=== PATIENT | male | born 1940 | race Caucasian/White ===

== ENCOUNTER 2024-01-07 11:34 | Inpatient (IN) | payer MEDICARE ==
[~2024-01-07] VITALS: Ht 172.7 cm; Wt 63.5 kg
[2024-01-07 11:35] VITALS: BP_SYST 137; PULSE 118; RESP 20; TEMP 97.8; O2SAT 97
[2024-01-07] MEDS: NS 1000 ML IV.SOLN IV ONE (11:45)
[2024-01-07 12:04] LABS: HEMATOCRIT 30.4 % (36-54); HEMOGLOBIN 9.9 g/dL (14.0-18.0); MEAN CORPUSCULAR HEMOGLOBIN 28 pg (27-31); MEAN CORPUSCULAR HGB CONC 33 % (32-36); MEAN CORPUSCULAR VOLUME 85 fL (79.0-98.0); PLATELET COUNT (AUTO) 153 K/uL (130-430); RED BLOOD CELL COUNT(AUTO) 3.57 MIL/uL (4.2-6.2); RED CELL DISTRIBUTION WIDTH 16.9 % (9.0-15.0); WHITE BLOOD COUNT (AUTO) 24.1 K/uL (4.8-10.8)
[2024-01-07 12:18] LABS: INR 1.9 (0.80-1.20); PROTHROMBIN TIME 19.1 SECS (9.5-12.5)
[2024-01-07 12:24] LABS: ANION GAP 15 (5-15); CALCIUM 8.3 mg/dL (8.4-11.0); CARBON DIOXIDE 23 mmol/L (23-29); CHLORIDE 105 mmol/L (98-107); CREATININE 0.92 mg/dL (0.55-1.30); GLUCOSE 218 mg/dL (74-106); POTASSIUM 3.9 mmol/L (3.5-5.1); SODIUM SERUM 143 mmol/L (136-145); UREA NITROGEN, BLOOD 31 mg/dL (8-21)
[2024-01-07 12:36] LABS: BAND % (MANUAL) 6 % (0-6); EOSINOPHILS % (MANUAL) 0 % (0-7); LYMPHOCYTES % (MANUAL) 5 % (20-46); MONOCYTES % (MANUAL) 6 % (0-11)
[2024-01-07 12:37] LABS: ANISOCYTOSIS 1+; BASOPHILS % (MANUAL) 0 % (0-2); HELMET CELLS FEW; OVALOCYTES FEW; PLATELET ESTIMATE ADEQUATE (ADEQUATE); POLYCHROMASIA 1+; TEAR DROP CELLS FEW
[2024-01-07 12:42] LABS: ALANINE AMINOTRANSFERASE 55 U/L (12-78); ALBUMIN 1.4 g/dL (3.4-4.8); ASPARTATE AMINOTRANSFERASE 105 U/L (10-37); BILIRUBIN,DIRECT 1.2 mg/dL (0.0-0.3); CREATINE KINASE, TOTAL 2062 U/L (39-308); TOTAL BILIRUBIN 2.3 mg/dL (0.0-1.0); TOTAL PROTEIN, SERUM 5.5 g/dL (6.4-8.3)
[2024-01-07 12:45] LABS: BILIRUBIN,URINE 2+ (NEGATIVE); BLOOD, URINE 3+ (NEGATIVE); CLARITY/URINE SL CLOUDY (CLEAR); COLOR,URINE YELLOW (YELLOW); GLUCOSE,URINE TRACE (NEGATIVE); KETONES,URINE TRACE (NEGATIVE); LEUKOCYTE ESTERASE ,URINE TRACE (NEGATIVE); NITRITE, URINE NEGATIVE (NEGATIVE); PH,URINE 5.5 (5.0-8.0); PROTEIN URINE TRACE (NEGATIVE)
[2024-01-07 12:56] LABS: BACTERIA,URINE FEW /HPF (None Seen); WBC,URINE 20-50 /HPF (0-3)
[2024-01-07 12:57] LABS: HYALINE CASTS, URINE 0-10 /LPF (None Seen); MUCUS,URINE 2+ /LPF (None Seen); OTHER CASTS, URINE WBC CASTS 1+ /LPF (None Seen)
[2024-01-07] MEDS ORDERED: PIPERACILLIN/TAZOBACTAM 3.375 GM/VIAL (ZOSYN) IV ONE ×2 (13:02)
[2024-01-07 13:10] LABS: CKMB RELATIVE INDEX 3.8 (0.0-2.9); CREATINE KINASE MB 77.4 ng/mL (0-3.6)
[2024-01-07 13:24] LABS: INFLUENZA TYPE A Negative (NEGATIVE); INFLUENZA TYPE B NEGATIVE (NEGATIVE)
[2024-01-07] MEDS: PIPERACILLIN/TAZO 3.375 GM in NS 50 ML IV ONE (13:24)
[2024-01-07] MEDS ORDERED: ATOR10TA68 PO (13:28)
[2024-01-07] MEDS ORDERED: METO50TA16 PO (13:28)
[2024-01-07] MEDS ORDERED: LISI-209 PO (13:28)
[2024-01-07] MEDS: D5/0.45 NS 1,000 ML IV SCH (14:46)
[2024-01-07 16:36] VITALS: BP_SYST 119; PULSE 111; RESP 20; TEMP 98.3; O2SAT 97
[2024-01-08] VITALS (25 sets, daily range): BP systolic 89–163; PULSE 94–105; RESP 37–52; TEMP 98–98.7; O2SAT 88–99
[2024-01-08] MEDS: NS 1000 ML IV.SOLN IV ONE (01:30)
[2024-01-08 01:53] LABS: BASOPHILS # (AUTO) 0.1 K/uL (0.0-0.2); BASOPHILS % (AUTO) 0.3 % (0.0-2.0); EOSINOPHILS % (AUTO) 0.1 % (0.0-4.0); HEMATOCRIT 26.4 % (36-54); HEMOGLOBIN 8.8 g/dL (14.0-18.0); LYMPHOCYTES # (AUTO) 0.6 K/uL (1.0-5.5); LYMPHOCYTES % (AUTO) 2.9 % (20.5-51.5); MEAN CORPUSCULAR HEMOGLOBIN 28 pg (27-31); MEAN CORPUSCULAR HGB CONC 33 % (32-36); MEAN CORPUSCULAR VOLUME 85 fL (79.0-98.0); MONOCYTES # (AUTO) 0.6 K/uL (0.0-1.0); NEUTROPHILS # (AUTO) 18.8 K/uL (1.8-7.7); NEUTROPHILS % (AUTO) 93.7 % (40.0-70.0); RED BLOOD CELL COUNT(AUTO) 3.11 MIL/uL (4.2-6.2); RED CELL DISTRIBUTION WIDTH 17.3 % (9.0-15.0); WHITE BLOOD COUNT (AUTO) 20.1 K/uL (4.8-10.8)
[2024-01-08 01:58] LABS: PLATELET COUNT (AUTO) 87 K/uL (130-430)
[2024-01-08] MEDS ORDERED: NOREPINEPHRINE BITARTRATE 4 MG in D5W 246 ML IV PRN (02:00)
[2024-01-08 02:26] LABS: ANION GAP 13 (5-15); CALCIUM 7.5 mg/dL (8.4-11.0); CARBON DIOXIDE 23 mmol/L (23-29); CHLORIDE 109 mmol/L (98-107); CREATININE 1.28 mg/dL (0.55-1.30); GLUCOSE 272 mg/dL (74-106); POTASSIUM 4.4 mmol/L (3.5-5.1); SODIUM SERUM 145 mmol/L (136-145); UREA NITROGEN, BLOOD 41 mg/dL (8-21)
[2024-01-08 02:45] LABS: ALANINE AMINOTRANSFERASE 166 U/L (12-78); ALBUMIN 1.2 g/dL (3.4-4.8); ASPARTATE AMINOTRANSFERASE 399 U/L (10-37); TOTAL BILIRUBIN 2.1 mg/dL (0.0-1.0); TOTAL PROTEIN, SERUM 4.8 g/dL (6.4-8.3)
[2024-01-08] MEDS ORDERED: HYDROcodone/ACETAMIN 10-325 MG TAB PO PRN (10:45)
[2024-01-08] MEDS ORDERED: ONDANSETRON HCL 4 MG/2 ML VIAL IVP PRN (10:45)
[2024-01-08] MEDS ORDERED: NALOXONE HCL 0.4 MG/ML AMP (NARCAN) IVP PRN ×2 (10:45)
[2024-01-08] MEDS ORDERED: HYDROcodone/ACETAMIN 5-325 MG TAB (NORCO/ VICODIN) PO PRN (10:45)
[2024-01-08] MEDS ORDERED: ACETAMINOPHEN 325 MG TABLET PO PRN (10:45)
[2024-01-08] MEDS: lisinopriL 5 MG TABLET PO ONE (11:48)
[2024-01-08] MEDS: PIPERACILLIN/TAZO 3.375/DEX-IS 50 ML IV SCH (12:13)
[2024-01-08] MEDS: ALBUTEROL SULFATE 0.083% 2.5 MG/3 ML VIAL.NEB INH PRN (13:49)
[2024-01-08] MEDS: IPRATROPIUM BROM 0.5 MG/2.5 ML VIAL.NEB (ATROVENT) INH PRN (13:49)
[2024-01-08] MEDS ORDERED: MORPHINE 2 MG/ML INJ. SYRINGE IVP PRN (17:30)
[2024-01-08] MEDS ORDERED: ATORVASTATIN 10 MG TABLET PO SCH (21:00)
[2024-01-08] MEDS ORDERED: METOPROLOL TARTRATE 50 MG TABLET PO SCH (21:00)
[2024-01-09] MEDS ORDERED: lisinopriL 5 MG TABLET PO SCH (09:00)
== END 2024-01-08 20:52 | DRG 871 ==
LOC: SED 11:34 → STU 13:53 → SIC 01-08 01:26
PROVIDERS: ADMIT Preventive Medicine Preventive Medicine/Occupational Environmental Medicine; ATTEND Preventive Medicine Preventive Medicine/Occupational Environmental Medicine
DX: A41.9 Sepsis, unspecified organism (principal); E43 Unspecified severe protein-calorie malnutrition; I21.4 Non-ST elevation (NSTEMI) myocardial infarction; J18.9 Pneumonia, unspecified organism; R65.21 Severe sepsis with septic shock; J96.00 Acute respiratory failure, unspecified whether with hypoxia or hypercapnia; G93.41 Metabolic encephalopathy; M62.82 Rhabdomyolysis; E87.20 Acidosis, unspecified; N39.0 Urinary tract infection, site not specified; C25.9 Malignant neoplasm of pancreas, unspecified; C78.7 Secondary malignant neoplasm of liver and intrahepatic bile duct; C78.00 Secondary malignant neoplasm of unspecified lung; Z20.822 Contact with and (suspected) exposure to COVID-19; E78.5 Hyperlipidemia, unspecified; I10 Essential (primary) hypertension; D72.829 Elevated white blood cell count, unspecified; D64.9 Anemia, unspecified; E88.09 Other disorders of plasma-protein metabolism, not elsewhere classified; E83.51 Hypocalcemia; K80.20 Calculus of gallbladder without cholecystitis without obstruction; I25.10 Atherosclerotic heart disease of native coronary artery without angina pectoris; Z68.21 Body mass index [BMI] 21.0-21.9, adult; Z95.0 Presence of cardiac pacemaker; Z95.1 Presence of aortocoronary bypass graft; Z87.891 Personal history of nicotine dependence
CPT/HCPCS: 36415; 71045; 80048; 80053; 80076; 81000; 81001; 81015; 82550; 82553; 82948; 83605; 84484; 85007; 85025; 85027; 85610; 85730; 87040; 87081; 87086; 93005; 94640; 96361; 96365; 99291; G0378; J2543